=== PATIENT | male | born 1955 | race Caucasian/White ===

== ENCOUNTER → 2016-08-31 | Outpatient (CLI) | payer OTHER ==
[~2016-08-31] MED LIST: ACETAMINOPHEN PO; ALBUTEROL17 GM; ALLEGRA; ANUSOL-HC21 GM PR; ASPIRIN PO; COUMADIN PO; DARVOCET-N 1001 TA1 PO; HCTZ; LIPITOR; LIPITOR PO; LOPID600 MG PO; LOPRESSOR PO; NASONEX17 GM; QVAR7.3 GM; SINGULAIR; SINGULAIR PO
--- NOTE | ~2016-08-31 | US136 ---
[facility] A Service of [facility] & [facility] RADIOLOGY TEXT RESULTS PATIENT: RODRÍGUEZ SEGURA LOCATION: CNIV : 53 UNIT #: [id number] AGE: [address]: Sandrine Saleh SEX: M ORDER DR: [id number] [facility] [address] [place], [place] [address] [id number] MR#: [id number] Acc #: [id number] NAME: RODRÍGUEZ SEGURA : 1955 SEX: M STUDY DATE/TIME: 08/31/2016 10:23 UNIT: CNIV ROOM: STUDY DESCRIPTION: U/L Ext Art Study Ltd Bil Attending Physician: Sandrine Saleh A.P.R.N. Referring Physician: Sandrine Saleh A.P.R.N. Ordering Physician: Sandrine Saleh A.P.R.N. Primary Care Physician: Sandrine Saleh A.P.R.N. MEDICAL IMAGING REPORT This report is preliminary unless electronic signature is present EXAM Ankle-brachial indices. HISTORY Hypertension, hyperlipidemia, bilateral claudication both ankles 3 weeks duration. TECHNIQUE Ankle-brachial indices performed bilaterally. All pressure measurements in millimeters of mercury. FINDINGS Right brachial pressure 141, left brachial pressure 132. Distal right lower extremity segmental pressures as follows: Dorsalis pedis at ankle 158, posterior tibial at ankle 170, great toe 111. Ankle-brachial index 1.21. Pulse volume recordings within normal limits. The left distal pressures as follows: Posterior tibial at ankle 169, dorsalis pedis at ankle 162, great toe 112. Ankle-brachial index 1.20. Pulse volume recordings within normal limits. IMPRESSION 1. Ankle-brachial indices of 1.21 on the right and 1.20 on the left are normal values. There appears to be adequate perfusion of the bilateral lower extremities in the resting state. Please note, there is elevation of pressures at the bilateral ankles which may be a reflection of underlying vascular calcification which can decrease the sensitivity of the examination. Please correlate with the patient's clinical status. If further anatomic evaluation of lower extremity arteries would assist in management, consider CT angiography. Dictated by... [facility]. [facility] A Service of [facility] & [facility] RADIOLOGY TEXT RESULTS PATIENT: RODRÍGUEZ SEGURA LOCATION: CN : 53 UNIT #: [id number] AGE: [address]: Sandrine Saleh SEX: M ORDER DR: Bert Broussard M.D. THIS IS AN ELECTRONICALLY VERIFIED REPORT Bert Broussard M.D. at 09/01/2016 6:12 PM BRITTNEY/sima TD: 08/31/2016 18:51 JOB #: [id number] MEDICAL IMAGING REPORT Page 1 of 1 COPY
== END | disposition home or self-care (01) ==
LOC: CNIV 10:07
DX: I99.9 Unspecified disorder of circulatory system (principal); I10 Essential (primary) hypertension; E78.5 Hyperlipidemia, unspecified
CPT/HCPCS: 93922